=== PATIENT | female | born 1990 | race Caucasian/White ===

== ENCOUNTER 2017-09-26 11:28 | Emergency (ER) | payer OTHER ==
[2017-09-26] MEDS ORDERED: 0.9 % SODIUM CHLORIDE 1,000 ML BAG IV ONE (11:55)
--- NOTE | 2017-09-26 11:58 | Emergency Department Record ---
History of Present Illness - General Chief complaint: Female Urogenital Problem Stated complaint: VAGINAL BLEEDING Time Seen by Provider: 09/26/17 11:55 Source: Patient Mode of Arrival: Ambulatory Limitations: No limitations - History of Present Illness Initial comments: 27 yo female presents from the [facility] with vaginal bleeding for 2 days. Her current cycle is two week late. She has had two negative tests in the last two weeks. She has a history of PCOS. She has a 16 month old that was a vaginal delivery. The patient states her cramps are significantly increased over a normal cycle. Initial large clots but not normal cycle type bleeding. MD Complaint: Vaginal bleeding -: Days(s) (2) Radiation: Suprapubic Severity: Moderate Quality: Aching, Cramping Consistency: Constant, Other (improving) Improves with: None Worsens with: None Associated Symptoms: Denies other symptoms - Related Data Home Medications Medication Instructions Recorded Confirmed Last Taken Benazepril HCl [Lotensin] 20 mg PO DAILY 09/26/17 09/26/17 Unknown Allergies Allergy/AdvReac Type Severity Reaction Status Date / Time guaifenesin [From Robitussin] AdvReac Intermediate HIVES Unverified 07/18/17 12: 41 Review of Systems Constitutional: Denies: Chills, Fever, Malaise, Weakness Eyes: Denies: Eye discharge ENT: Denies: Congestion, Throat pain Respiratory: Denies: Cough, Dyspnea, Hemoptysis, Stridor, Wheezes Cardiovascular: Denies: Chest pain, Syncope Endocrine: Denies: Fatigue Gastrointestinal: Reports: As per HPI, Abdominal pain. Denies: Constipation, Diarrhea, Hematemesis, Melena, Nausea, Vomiting Genitourinary: Reports: As per HPI, Abnormal menses (2 weeks late). Denies: Dysuria, Retention, Urgency Musculoskeletal: Denies: Arthralgia, Back pain, Myalgia, Neck pain Skin: Denies: Bruising, Change in color, Rash Neurological: Denies: Confusion, Headache, Numbness, Tingling, Tremors, Weakness Psychiatric: Denies: Anxiety Hematological/Lymphatic: Denies: Blood Clots, Easy bleeding, Easy bruising, Swollen glands Physical Exam - General General Appearance: Alert, Oriented x3, Cooperative, No acute distress Limitations: No limitations - Head Head exam: Normal inspection - Eye Eye exam: Normal appearance. negative: Conjunctival injection, Scleral icterus - ENT ENT exam: Normal exam, Mucous membranes moist Ear exam: Normal external inspection Nasal Exam: Normal inspection Mouth exam: Normal external inspection - Neck Neck exam: Normal inspection - Respiratory Respiratory exam: Normal lung sounds bilaterally. negative: Respiratory distress - Cardiovascular Cardiovascular Exam: Regular rate, Normal rhythm, Normal heart sounds Peripheral Pulses: 2+: Radial (R), Radial (L) - GI/Abdominal GI/Abdominal exam: Soft. negative: Distended, Guarding, Mass, Rebound, Tenderness - Rectal Rectal exam: Deferred - exam: Vaginal bleeding. negative: Abnormal external exam, Adnexal mass (L), Adnexal mass (R), Adnexal tenderness (L), Adnexal tenderness (R), Cervical discharge, cervical motion tenderness, Vaginal discharge - Extremities Extremities exam: Normal inspection, Full ROM, Normal capillary refill. negative: Tenderness - Back Back exam: Reports: Normal inspection, Full ROM. Denies: CVA tenderness (R), CVA tenderness (L), Muscle spasm, Rash noted, Tenderness - Neurological Neurological exam: Alert, Normal gait, Oriented X3 - Psychiatric Psychiatric exam: Normal affect, Normal mood - Skin Skin exam: Dry, Intact, Normal color, Warm Course - Reevaluation(s) Reevaluation #1: Hgb was 14.6 June of 201709/26/17 11:58 09/26/17 12:29 No acute changes on the CBC. Hgb is 15 09/26/17 12:55 The Serum HCG is negative The BMP is negative 09/26/17 13:55 The wet prep is negative Awaiting US 09/26/17 15:19 The pelvic US is normal. Normal flow. No acute abnormality. Medical Decision Making - Lab Data Result diagrams: 09/26/17 12:05 09/26/17 12:05 Disposition Disposition: Discharge Clinical Impression: Vaginal bleeding Disposition: Home, Self-Care Condition: (1) Good Instructions: Dysfunctional Uterine Bleeding (ED) Additional Instructions: Call your OB for close follow up of your ER visit and to review the results of the tests Return or be seen if worse, pain or any new concerns Forms: Patient Portal Access Time of Disposition: 15:20 Quality - Quality Measures Quality Measures: N/A - Blood Pressure Screening Does Patient Have Any of the Following: No Blood Pressure Classification: Pre-Hypertensive BP Reading Systolic Measurement: 140 Diastolic Measurement: 89 Screening for High Blood Pressure: < Pre-Hypertensive BP, F/U Documented > [ [id number]] Pre-Hypertensive Follow-up Interventions: Referral to alternative/primary care provider.
[2017-09-26] MEDS ORDERED: SODIUM CHLORIDE 0.9% 500 ML IV ONE (12:02)
[2017-09-26 12:20] LABS: BASO % 0.3 % (0-6); EOS % 0.4 % (0-6); GRAN % 69.9 % (47-80); HEMATOCRIT 45.6 % (35.0-47.0); HEMOGLOBIN 15.3 gm/dl (11.6-16.0); LYMPH % 21.6 % (16-45); MEAN CELL VOLUME 85.4 fl (81-97); MEAN CORPUSCULAR HEMOGLOBIN 28.7 pg (27-33); MEAN CORPUSCULAR HGB CONC 33.6 g/dl (32-36); MEAN PLATELET VOLUME 10.4 fl (7.4-10.4); MONO % 7.8 % (0-9); PLATELET COUNT 295 K/uL (130-400); RED BLOOD COUNT 5.34 M/uL (3.80-5.40); WHITE BLOOD COUNT W/O DIFF 9.3 K/uL (4.2-12.2)
[2017-09-26 12:33] LABS: BLOOD UREA NITROGEN 8 mg/dL (6-20); CREATININE 0.6 mg/dL (0.5-0.9); EST GLOMERULAR FILTRATION RATE > 60 mL/min; GLUCOSE,RANDOM 88 mg/dL (74-109)
--- NOTE | 2017-09-27 09:14 | ULTRASOUND REPORT ---
EXAM: PELVIC ULTRASOUND WITH DUPLEX DOPPLER, TRANSABDOMINAL AND TRANSVAGINAL HISTORY: ACUTE VAGINAL BLEEDING, PELVIC PAIN, CRAMPING. TECHNIQUE: Real-time olson scale sonographic imaging of the pelvis was performed with transabdominal imaging only as well as with Duplex Doppler. Spectral analysis was also performed. Transvaginal imaging was also performed. Comparison: None. FINDINGS: The uterus is of normal size with homogeneous myometrium. The uterus measures 8.9 x 3.8 x 4.5 cm. The endometrial echo complex thickness is 9 mm, within normal limits. The ovaries appear symmetric in size and are otherwise unremarkable. The right ovary measures 3.2 x 3.2 x 3.0 cm and the left ovary measures 3.3 x 3.0 x 3.4 cm. Transvaginal images demonstrate a normal sized uterus with homogeneous myometrium. The endometrial echo complex is 13 mm, within normal limits. Normal subcentimeter follicles in the ovaries. Spectral analysis demonstrates normal color flow to the ovaries. Spectral analysis demonstrates unidirectional arterial and venous waveforms in both ovaries. No free pelvic fluid or adnexal mass. IMPRESSION: NORMAL PELVIC ULTRASOUND. JOB NUMBER: [id number] [facility]
[2017-09-27 19:22] LABS: GC SPECIMEN TYPE Vaginal
== END 2017-09-26 15:48 | disposition home or self-care (01) ==
LOC: ER 11:28
DX: N93.8 Other specified abnormal uterine and vaginal bleeding (principal); R10.2 Pelvic and perineal pain
CPT/HCPCS: 99284 ×2; 85025; 84702; 80048; 76856; Q0111; 87210

== ENCOUNTER 2018-08-29 08:03 | Emergency (ER) | payer OTHER ==
--- NOTE | 2018-08-29 08:26 | Emergency Department Record ---
History of Present Illness - General Chief complaint: Extremity Problem Stated complaint: left arm numbness Time Seen by Provider: 08/29/18 08:17 Source: Patient Mode of Arrival: Ambulatory - History of Present Illness Initial comments: numbness in the left arm and she is left handed and slept on it funny 2 days ago and arm was numb but juwan went away and today she noticed a small amount of swelling in the left hand and rings are slightly tight but they still go on and off nicely. 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 Onset/Timin -: Days(s) Location: Left, Arm, Shoulder History of Same: Yes Radiation: None Severity scale (1-10): 5 Quality: Aching Consistency: Intermittent Improves with: Rest Worsens with: Exertion Associated Symptoms: Denies other symptoms - Related Data Previous Rx's Medication Instructions Recorded Naproxen [Naprosyn] 500 mg PO BID #60 tablet 08/29/18 Allergies Allergy/AdvReac Type Severity Reaction Status Date / Time guaifenesin [From Robitussin] AdvReac Intermediate HIVES Verified 08/29/18 08:14 Travel Screening - Travel/Exposure Within Last 30 Days Have you traveled within the last 30 days?: No - Travel/Exposure Within Last Year Have you traveled outside the [place] in the last year?: No - Additonal Travel Details Have you been exposed to anyone with a communicable illness?: No - Travel Symptoms Symptom Screening: None Review of Systems Reviewed: No additional complaints except as noted below Constitutional: Reports: As per HPI. Denies: Chills, Fever, Malaise, Night sweats, Weakness, Weight change Eyes: Reports: As per HPI. Denies: Eye discharge, Eye pain, Photophobia, Vision change ENT: Reports: As per HPI. Denies: Congestion, Dental pain, Ear pain, Epistaxis , Hearing loss, Throat pain Respiratory: Reports: As per HPI. Denies: Cough, Dyspnea, Hemoptysis, Stridor, Wheezes Cardiovascular: Reports: As per HPI. Denies: Arrhythmia, Chest pain, Dyspnea on exertion, Edema, Murmurs, Orthopnea, Palpitations, Paroxysmal nocturnal dyspnea, Rheumatic Fever, Syncope Endocrine: Reports: As per HPI. Denies: Fatigue, Heat or cold intolerance, Polydipsia, Polyuria Gastrointestinal: Reports: As per HPI. Denies: Abdominal pain, Constipation, Diarrhea, Hematemesis, Hematochezia, Melena, Nausea, Vomiting Genitourinary: Reports: As per HPI. Denies: Abnormal menses, Discharge, Dyspareunia, Dysuria, Frequency, Hematuria, Incontinence, Retention, Urgency Musculoskeletal: Reports: As per HPI, Neck pain, Other (numbness in left arm and shoulder and axillae pain). Denies: Arthralgia, Back pain, Gout, Joint swelling, Myalgia Skin: Reports: As per HPI. Denies: Bruising, Change in color, Change in hair/ nails, Lesions, Pruritus, Rash Neurological: Reports: As per HPI. Denies: Abnormal gait, Confusion, Headache, Numbness, Paresthesias, Seizure, Tingling, Tremors, Vertigo, Weakness Psychiatric: Reports: As per HPI. Denies: Anxiety, Auditory hallucinations, Depression, Homicidal thoughts, Suicidal thoughts, Visual hallucinations Hematological/Lymphatic: Reports: As per HPI. Denies: Anemia, Blood Clots, Easy bleeding, Easy bruising, Swollen glands Past Medical History - SOCIAL HISTORY Smoking Status: Current every day smoker Alcohol Use: None Drug Use: None - RESPIRATORY Hx Respiratory Disorders: No - CARDIOVASCULAR Hx Cardio Disorders: Yes Hx Hypertension: Yes - NEURO Hx Neuro Disorders: No - GI Hx GI Disorders: No - Hx Genitourinary Disorders: Yes - ENDOCRINE Hx Endocrine Disorders: No - MUSCULOSKELETAL Hx Musculoskeletal Disorders: No - PSYCH Hx Psych Problems: Yes Hx Anxiety: Yes - HEMATOLOGY/ONCOLOGY Hx Hematology/Oncology Disorders: No Family Medical History Any Significant Family History?: Yes Physical Exam - General General Appearance: Alert, Oriented x3, Cooperative, No acute distress - Head Head exam: Normal inspection - Eye Eye exam: Normal appearance, PERRL Pupils: Normal accommodation - ENT ENT exam: Normal exam, Mucous membranes moist, Normal external ear exam, Normal orophraynx, TM's normal bilaterally Ear exam: Normal external inspection. negative: External canal tenderness Nasal Exam: Normal inspection. negative: Discharge, Sinus tenderness Mouth exam: Normal external inspection, Tongue normal Teeth exam: Normal inspection. negative: Dental caries Throat exam: Normal inspection. negative: Tonsillar erythema, Tonsillar exudate - Neck Neck exam: Normal inspection, Full ROM. negative: Tenderness - Respiratory Respiratory exam: Normal lung sounds bilaterally. negative: Respiratory distress - Cardiovascular Cardiovascular Exam: Regular rate, Normal rhythm, Normal heart sounds - GI/Abdominal GI/Abdominal exam: Soft, Normal bowel sounds. negative: Tenderness - Rectal Rectal exam: Deferred - exam: Deferred - Extremities Extremities exam: Normal inspection, Full ROM, Normal capillary refill, Tenderness, Other (radial pulses good and card dealer equal bilateral) - Back Back exam: Reports: Normal inspection, Full ROM. Denies: Muscle spasm, Rash noted, Tenderness - Neurological Neurological exam: Alert, Normal gait, Oriented X3, Reflexes normal - Psychiatric Psychiatric exam: Normal affect, Normal mood - Skin Skin exam: Dry, Intact, Normal color, Warm Course Vital Signs 08/29/18 08:09 Temperature 98.4 F Pulse Rate 77 Respiratory 16 Rate Blood Pressure 140/95 Pulse Ox 99 Disposition Clinical Impression: Cervical strain, acute Qualifiers: Encounter type: initial encounter Qualified Code(s): S16.1XXA - Strain of muscle, fascia and tendon at neck level, initial encounter Thoracic myofascial strain Qualifiers: Encounter type: initial encounter Qualified Code(s): S29.019A - Strain of muscle and tendon of unspecified wall of thorax, initial encounter Radiculopathy Qualifiers: Spinal region: cervical Qualified Code(s): M54.12 - Radiculopathy, cervical region Disposition: Home, Self-Care Condition: (1) Good Instructions: Cervical Strain (ED), Cervical Radiculopathy (ED) Additional Instructions: follow up with Dr. family Currie in one week Prescriptions: Naproxen [Naprosyn] 500 mg PO BID #60 tablet Time of Disposition: 08:28 Quality - Quality Measures Quality Measures: N/A - Blood Pressure Screening Does Patient Have Any of the Following: No, Active Dx of HTN Blood Pressure Classification: Hypertensive Reading Systolic Measurement: 140 Diastolic Measurement: 95 Screening for High Blood Pressure: Patient Exclusion, Hx of HTN [G9744]
== END 2018-08-29 08:45 | disposition home or self-care (01) ==
LOC: ER 08:03
DX: S16.1XXA Strain of muscle, fascia and tendon at neck level, initial encounter (principal); S29.019A Strain of muscle and tendon of unspecified wall of thorax, initial encounter; M54.12 Radiculopathy, cervical region; I10 Essential (primary) hypertension; F17.210 Nicotine dependence, cigarettes, uncomplicated; X50.1XXA Overexertion from prolonged static or awkward postures, initial encounter
CPT/HCPCS: 99282

== ENCOUNTER 2019-09-03 20:59 | Emergency (ER) | payer BC, OTHER ==
--- NOTE | 2019-09-03 21:13 | Emergency Department Record ---
History of Present Illness - General Stated Complaint: HEARTBURN Time Seen by Provider: 09/03/19 21:06 Source: Patient Mode of Arrival: Ambulatory Limitations: No limitations - History of Present Illness Initial comments: 29 yo female presents to ED for evaluation of "heart burn" for the past 3 days. Patient reports a history of similar symptoms, denies nausea, vomiting, or ab dominal pain symptoms. Patient reports similar symptoms previously, denies health problems or previous abdominal surgery previously. Patient has not taken anything for her symptoms prior to arrival. Onset/Timin -: Days(s) Location: Abdomen Radiation: Non-Radiating Quality: Burning Consistency: Intermittent Improves with: None Worsens with: Other (Laying supine) Associated Symptoms: Denies other symptoms Treatments Prior to Arrival: None - Mylene Coma Scale Eye Response: (4) Open spontaneously Motor Response: (6) Obeys commands Verbal Response: (5) Oriented [place] Total: 15 - Related Data Home Medications Medication Instructions Recorded Confirmed Last Taken Metronidazole 500 mg PO BID 09/03/19 09/03/19 Unknown Previous Rx's Medication Instructions Recorded Famotidine [Pepcid] 40 mg PO DAILY #30 tablet 09/03/19 Famotidine [Pepcid] 40 mg PO DAILY #30 tablet 09/03/19 Allergies Allergy/AdvReac Type Severity Reaction Status Date / Time guaifenesin [From Robitussin] AdvReac Intermediate HIVES Verified 09/03/19 21:17 Review of Systems Constitutional: Denies: Chills, Fever, Malaise, Night sweats Eyes: Denies: Eye discharge, Eye pain ENT: Denies: Congestion, Ear pain Respiratory: Denies: Cough, Dyspnea Cardiovascular: Denies: Chest pain, Dyspnea on exertion Endocrine: Denies: Fatigue, Heat or cold intolerance Gastrointestinal: Denies: Abdominal pain, Nausea, Vomiting Genitourinary: Denies: Incontinence, Retention Musculoskeletal: Denies: Arthralgia, Back pain Skin: Denies: Bruising, Change in color Neurological: Denies: Abnormal gait, Confusion, Seizure Psychiatric: Denies: Anxiety Hematological/Lymphatic: Denies: Anemia, Blood Clots Past Medical History - SOCIAL HISTORY Smoking Status: Current every day smoker Drug Use: None - RESPIRATORY Hx Respiratory Disorders: No - CARDIOVASCULAR Hx Cardio Disorders: Yes Hx Hypertension: Yes - NEURO Hx Neuro Disorders: No - GI Hx GI Disorders: No - Hx Genitourinary Disorders: Yes - ENDOCRINE Hx Endocrine Disorders: No - MUSCULOSKELETAL Hx Musculoskeletal Disorders: No - PSYCH Hx Psych Problems: Yes Hx Anxiety: Yes - HEMATOLOGY/ONCOLOGY Hx Hematology/Oncology Disorders: No Physical Exam - General General Appearance: Alert, Oriented x3, Cooperative, No acute distress Limitations: No limitations - Head Head exam: Atraumatic, Normocephalic, Normal inspection Head exam detail: negative: Abrasion, Contusion, Thomas's sign, General tenderness, Hematoma, Laceration - Eye Eye exam: Normal appearance. negative: Conjunctival injection, Periorbital swelling, Periorbital tenderness, Scleral icterus - ENT Ear exam: negative: Auricular hematoma, Auricular trauma Nasal Exam: negative: Active bleeding, Discharge, Dried blood, Foreign body Mouth exam: negative: Drooling, Laceration, Muffled voice, Tongue elevation - Neck Neck exam: Normal inspection. negative: Meningismus, Tenderness - Respiratory Respiratory exam: Normal lung sounds bilaterally. negative: Rales, Respiratory distress, Rhonchi, Stridor - Cardiovascular Cardiovascular Exam: Regular rate, Normal rhythm, Normal heart sounds - GI/Abdominal GI/Abdominal exam: Soft. negative: Rebound, Rigid, Tenderness - Rectal Rectal exam: Deferred - exam: Deferred - Extremities Extremities exam: Normal inspection. negative: Pedal edema, Tenderness - Back Back exam: Denies: CVA tenderness (R), CVA tenderness (L) - Neurological Neurological exam: Alert, Normal gait, Oriented X3 - Psychiatric Psychiatric exam: Normal affect, Normal mood - Skin Skin exam: Normal color. negative: Abrasion Type of lesion: negative: abrasion Course Vital Signs 09/03/19 21:04 Temperature 98.5 F Pulse Rate [ 106 H Left] Respiratory 16 Rate Blood Pressure 162/104 [Left] Pulse Ox 100 - Reevaluation(s) Reevaluation #1: 09/03/19 21:11 Abdominal examination is 100% benign History and physical examination are c/w probable GERD. Will initiate treatment with Pepcid as directed. Patient appears stable for discharge at this time. Disposition Disposition: Discharge Clinical Impression: GERD (gastroesophageal reflux disease) Qualifiers: Esophagitis presence: esophagitis presence not specified Qualified Code(s): K21.9 - Gastro-esophageal reflux disease without esophagitis Disposition: Home, Self-Care Condition: (2) Stable Instructions: Gastroesophageal Reflux Disease (ED) Additional Instructions: Return to ED if your symptoms worsen or if you have any concerns. Pepcid as directed. Follow-up with your family doctor in 3-5 days as directed. Prescriptions: Famotidine [Pepcid] 40 mg PO DAILY #30 tablet Famotidine [Pepcid] 40 mg PO DAILY #30 tablet Forms: Patient Portal Access Time of Disposition: 21:12 Quality - Quality Measures Quality Measures: N/A - Blood Pressure Screening Does Patient Have Any of the Following: No Blood Pressure Classification: Hypertensive Reading Systolic Measurement: 162 Diastolic Measurement: 104 Screening for High Blood Pressure: < First Hypertensive BP, F/U Documented > [G8950] First Hypertensive Follow-up Interventions: Referral to alternative/primary care provider.
[2019-09-03] MEDS: FAMOTIDINE 20MG TABLET PO ONE (21:20)
== END 2019-09-03 21:43 | disposition home or self-care (01) ==
LOC: ER 20:59
DX: K21.9 Gastro-esophageal reflux disease without esophagitis (principal); I10 Essential (primary) hypertension; F17.210 Nicotine dependence, cigarettes, uncomplicated
CPT/HCPCS: 99283

== ENCOUNTER 2019-09-16 03:26 | Emergency (ER) | payer BC ==
[2019-09-16 03:58] LABS: URINE APPEARANCE CLOUDY; URINE BILIRUBIN NEGATIVE (NEGATIVE); URINE BLOOD LARGE (NEGATIVE); URINE COLOR RED; URINE GLUCOSE (UA) NEGATIVE (NEGATIVE); URINE KETONE TRACE (NEGATIVE); URINE LEUKOCYTE ESTERASE TRACE (NEGATIVE); URINE NITRITE POSITIVE (NEGATIVE)
--- NOTE | 2019-09-16 04:00 | Emergency Department Record ---
History of Present Illness - General Chief complaint: Female Urogenital Problem Stated complaint: KIDNEY INFECTION Time Seen by Provider: 09/16/19 03:44 Source: Patient Mode of Arrival: Ambulatory Limitations: No limitations - History of Present Illness Initial comments: Pt to the ED with left flank pain onset this evening at home. "I thought I slep wrong and got up and was stretching and walked around", "Then I laid in a ball curled up and it got worse". Pains radiate from left flank to left lower back. No fever, no nausea, no felling of illness. Pt was seen at an urgent care in [place] yesterday and diagnosed with UTI and hematuria. On AB but only taken one dose as prescribed. No vaginal bleeding. Pt has Polycystic Ovarian Syndrome and has irregular periods. FDLMP 06-23-19. No Vaginal bleeding at this time. No hx of renal stones. Onset/Timin -: Days(s) Radiation: L flank Severity: Moderate Severity scale (1-10): 4 Quality: Aching Consistency: Constant Improves with: None Worsens with: Movement, Urination LMP Date: 06/23/19 Gestational Age (wks) based on LMP: 12 Associated Symptoms: Hematuria - Related Data Previous Rx's Medication Instructions Recorded Famotidine [Pepcid] 40 mg PO DAILY #30 tablet 09/03/19 Ibuprofen [Motrin 600Mg] 600 mg PO Q6H 7 Days #40 tablet 09/16/19 Sulfamethoxazole/Trimethoprim 1 each PO BID 7 Days #14 tablet 09/16/19 [Bactrim Ds Tablet] Allergies Allergy/AdvReac Type Severity Reaction Status Date / Time guaifenesin [From Robitussin] AdvReac Intermediate HIVES Verified 09/03/19 21:17 Travel Screening - Travel/Exposure Within Last 30 Days Have you traveled within the last 30 days?: No - Travel/Exposure Within Last Year Have you traveled outside the [place] in the last year?: No - Additonal Travel Details Have you been exposed to anyone with a communicable illness?: No - Travel Symptoms Symptom Screening: None Review of Systems Constitutional: Denies: Chills, Fever, Malaise, Weakness Eyes: Denies: Eye pain ENT: Denies: Congestion Respiratory: Denies: Cough Cardiovascular: Denies: Chest pain, Syncope Endocrine: Denies: Fatigue, Polydipsia, Polyuria Gastrointestinal: Reports: As per HPI. Denies: Diarrhea, Nausea, Vomiting Genitourinary: Reports: As per HPI, Hematuria, Urgency. Denies: Dysuria, Frequency, Incontinence Musculoskeletal: Reports: As per HPI, Back pain Skin: Denies: Rash Neurological: Denies: Headache Psychiatric: Denies: Anxiety Hematological/Lymphatic: Denies: Anemia Past Medical History - SOCIAL HISTORY Smoking Status: Current every day smoker Alcohol Use: None - RESPIRATORY Hx Respiratory Disorders: No - CARDIOVASCULAR Hx Cardio Disorders: Yes Hx Hypertension: Yes - NEURO Hx Neuro Disorders: No - GI Hx GI Disorders: No Hx Ulcer: Yes (10 y/o) - Hx Genitourinary Disorders: Yes - ENDOCRINE Hx Endocrine Disorders: No - MUSCULOSKELETAL Hx Musculoskeletal Disorders: No - PSYCH Hx Psych Problems: Yes Hx Anxiety: Yes - HEMATOLOGY/ONCOLOGY Hx Hematology/Oncology Disorders: No Family Medical History Any Significant Family History?: Yes Hx HTN: Mother Hx Kidney Disease: Mother Physical Exam - General General Appearance: Alert, Oriented x3, Cooperative, Mild distress - Head Head exam: Atraumatic - Eye Eye exam: PERRL, EOMI - ENT ENT exam: Normal exam, Mucous membranes moist Ear exam: Normal external inspection Nasal Exam: Normal inspection - Neck Neck exam: Normal inspection. negative: Lymphadenopathy - Respiratory Respiratory exam: Normal lung sounds bilaterally. negative: Respiratory distress, Wheezes - Cardiovascular Cardiovascular Exam: Regular rate, Normal rhythm. negative: Tachycardia Peripheral Pulses: 2+: Radial (R), Radial (L) - GI/Abdominal GI/Abdominal exam: Soft, Normal bowel sounds. negative: Tenderness - Extremities Extremities exam: Normal inspection - Back Back exam: Reports: CVA tenderness (L). Denies: Paraspinal tenderness - Neurological Neurological exam: Alert, Normal gait, Oriented X3 - Psychiatric Psychiatric exam: Normal affect, Normal mood - Skin Skin exam: Normal color. negative: Rash Course Vital Signs 09/16/19 03:32 Pulse Rate 73 Respiratory 16 Rate Blood Pressure 142/82 Pulse Ox 99 - Reevaluation(s) Reevaluation #1: 09/16/19 05:10 CT with proximal renal stone with mild hydronephrosis. Pain is resolved with toradol. We discussed straining urine for stone. Also pt on Macrobid for "UTI". We will change to Bactrim and add Motrin for pain. She has Family Doctor for follow up. Disposition Disposition: Discharge Clinical Impression: Kidney stone on left side, Hydronephrosis Disposition: Home, Self-Care Condition: (1) Good Instructions: Kidney Stones (ED), How to Strain Your Urine (ED) Additional Instructions: STOP taking the Macrobid. START taking the Bactrim DS twice a day. Motrin for pain. Family Doctor follow up in 2-3 days. Return to the ED as needed. Prescriptions: Sulfamethoxazole/Trimethoprim [Bactrim Ds Tablet] 1 each PO BID 7 Days #14 tablet Ibuprofen [Motrin 600Mg] 600 mg PO Q6H 7 Days #40 tablet Forms: Patient Portal Access Time of Disposition: 05:16 Quality - Quality Measures Quality Measures: N/A - Blood Pressure Screening Does Patient Have Any of the Following: No Blood Pressure Classification: Pre-Hypertensive BP Reading Systolic Measurement: 142 Diastolic Measurement: 82 Screening for High Blood Pressure: Patient Exclusion, Hx of HTN [G9744]
[2019-09-16] MEDS ORDERED: KETOROLAC 30 MG/ML VIAL IVP ONE (04:03)
[2019-09-16 04:07] LABS: HCG,QUALITATIVE URINE NEGATIVE (NEGATIVE); URINE BACTERIA FEW; URINE EPITHELIAL CELLS 0 - 2 (FEW); URINE WBC 0 - 2 (0-2/hpf)
--- NOTE | 2019-09-16 04:55 | CT SCAN REPORT ---
EXAMINATION: CT Abdomen and Pelvis without IV Contrast EXAM DATE: 09/16/2019 4:49 AM TECHNIQUE: Standard protocol CT imaging of the abdomen and pelvis was performed without intravenous c ontrast. INDICATION: left flank pain - renal stone proticol COMPARISON: None ENCOUNTER: Not applicable CT ABDOMEN AND PELVIS FINDINGS: Lung Bases: Included extent of the lung bases are clear. Hepatobiliary: The liver has a normal size with a smooth surface. There is no biliary dilatation and the gallbladder is unremarkable. Pancreas: The pancreas is normal. Spleen: The spleen is not enlarged. Adrenals: The adrenal glands are normal. Gastrointestinal: The stomach and small bowel are normal with no obstruction or inflammation. The lisa endix is normal. The large bowel is within normal limits. Reproductive Organs: Unremarkable Lymphatic System: There is no adenopathy within the abdomen or pelvis. Vasculature: Normal caliber abdominal aorta Peritoneum: No free fluid, free air, or inflammation Assessment of the solid organs, soft tissues, and vascular structures is overall limited on noncontra st imaging, IMPRESSION: 1. Left proximal ureteral calculus causing mild left-sided hydronephrosis. Dictated by: Aida Hutchinson MD on 09/16/2019 4:51 AM. .
== END 2019-09-16 05:30 | disposition home or self-care (01) ==
LOC: ER 03:26
DX: N13.2 Hydronephrosis with renal and ureteral calculous obstruction (principal); I10 Essential (primary) hypertension; F17.210 Nicotine dependence, cigarettes, uncomplicated
CPT/HCPCS: 74176; 81001; 81025; 96374; 99284; J1885